=== PATIENT | male | born 1995 | race Caucasian/White ===

== ENCOUNTER 2018-10-20 03:27 | Emergency (ER) | payer SELFPAY ==
[~2018-10-20] VITALS: Ht 182.9 cm; Wt 90.7 kg
--- NOTE | 2018-10-20 03:27 | NUR ---
PT [address], BYSTANDERS CALLED 911, FOUND PT RUNNING AROUND STREETS, NAKED, ACTING BIZARRE. PT NONCOMMUNICATIVE, RESTLESS, RESP EVEN & UNLABORED, DISSHEVELED, UNKEMPT APPEARANCE W/ NO APPARENT DISTRESS NOTED. PT PLACED ON CONTINUOUS MONITORING.
[2018-10-20] MEDS ORDERED: OLANZAPINE 10 MG VIAL IM ONE ×2 (03:58→04:00)
--- NOTE | 2018-10-20 04:04 | NUR ---
PT MEDICATED ORDERED, RESTLESS, UNABLE TO FOLLOW INSTRUCTION. ON CONTINUOUS MONITORING. BED LOW TO GROUND W/ SIDERAILS UP FOR SAFETY. SITTER REMAINS AT BEDSIDE.
--- NOTE | 2018-10-20 04:11 | NUR ---
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
[2018-10-20 04:27] LABS: BASOPHILS % (AUTO) 0.5 % (0.0-2.0); EOSINOPHILS % (AUTO) 2.5 % (0.0-6.0); HEMATOCRIT 39 % (39-51); HEMOGLOBIN 13.2 g/dL (13.5-17.5); LYMPHOCYTES % (AUTO) 40.8 % (20.0-44.0); MEAN CORPUSCULAR HGB CONC 34 g/dl (31.0-36.0); MEAN CORPUSCULAR VOLUME 90 fL (80-96); MONOCYTES # (AUTO) 0.8 /CMM (0.1-1.30); MONOCYTES % (AUTO) 10.5 % (2.0-12.0); NEUTROPHILS # (AUTO) 3.4 /CMM (1.8-8.9); NEUTROPHILS % (AUTO) 45.7 % (43.0-81.0); PLATELET COUNT (AUTO) 239 /CMM (150-450); RED BLOOD CELL COUNT(AUTO) 4.27 MIL/uL (4.5-6.0); WHITE BLOOD COUNT (AUTO) 7.4 K/uL (4.3-11.0)
[2018-10-20 04:49] LABS: ALANINE AMINOTRANSFERASE 50 U/L (12-78); ALBUMIN 3.7 g/dL (3.4-5.0); ALCOHOL, BLOOD < 3 mg/dL (0-0); ALKALINE PHOSPHATASE 70 U/L (46-116); ASPARTATE AMINOTRANSFERASE 34 U/L (15-37); BILIRUBIN,DIRECT 0.1 mg/dL (0.0-0.2); BILIRUBIN,TOTAL 0.2 mg/dL (0.2-1.0); CALCIUM, SERUM 8.3 mg/dL (8.5-10.1); CARBON DIOXIDE 27 mmol/L (21-32); CHLORIDE 105 mmol/L (98-107); GLUCOSE 90 mg/dL (74-106); POTASSIUM 3.9 mmol/L (3.5-5.1); SODIUM SERUM 140 mmol/L (136-145); TOTAL PROTEIN, SERUM 6.8 g/dL (6.4-8.2); UREA NITROGEN, BLOOD 14 mg/dL (7-18)
--- NOTE | 2018-10-20 05:06 | NUR ---
PT LYING SUPINE W/ RESP EVEN & UNLABORED, NAD NOTED. SITTER REMAINS IN DIRECT LINE OF SITE OF PT.
[2018-10-20] MEDS ORDERED: LIDOCAINE 2% JEL UROJET 10 ML MM ONE (05:20)
[2018-10-20 05:33] LABS: SALICYLATE 2.1 mg/dL (2.8-20.0)
[2018-10-20 05:34] LABS: ACETAMINOPHEN 0 ug/ml (10-30)
--- NOTE | 2018-10-20 05:54 | NUR ---
URINAL PROVIDED. PT STILL UNABLE TO URINATE AT THIS TIME, GOING IN AND OUT OF SLEEP. PT INSTRUCTED TO PROVIDE URINE SAMPLE SOON ABLE.
--- NOTE | 2018-10-20 06:42 | NUR ---
PT SITTING UP IN BED W/ RESP EVEN & UNLABORED, STATES HIS NAME IS AVERY, STILL UNABLE TO GIVE HIS FULL NAME, UNABLE TO ANSWER QUESTIONS. ON CONTINUOUS MONITORING. SITTER AT BEDSIDE.
--- NOTE | 2018-10-20 07:40 | NUR ---
ASSESSED PT ON BED AWAKE AND ALERT, NOT IN RESPIRATORY DISTRESS, KEPT RESTED AND COMFORTABLE, WILL CONTINUE TO MONITOR.
--- NOTE | 2018-10-20 07:50 | NUR ---
URINE SPECIMEN COLLECTED AND SENT TO LAB.
--- NOTE | 2018-10-20 11:29 | NUR ---
PT ASLEEP ON BED, V/S STABLE, KEPT RESTED AND COMFORTABLE, WILL CONTINUE TO MONITOR.
--- NOTE | 2018-10-20 15:19 | NUR ---
PT IS BACK FROM THE CT SCAN.
[2018-10-20 15:32] LABS: APPEARANCE,URINE Clear (CLEAR); BILIRUBIN,URINE Negative (NEGATIVE); BLOOD, URINE Negative Ery/uL (NEGATIVE); COLOR,URINE Yellow (YELLOW); KETONES,URINE Negative (NEGATIVE); LEUKOCYTE ESTERASE ,URINE Negative (NEGATIVE); NITRITE, URINE Negative (NEGATIVE); PROTEIN,URINE Negative (NEGATIVE); UGLUCOSE Negative (NEGATIVE); UROBILINOGEN,URINE 0.2 EU/dL (0.2)
--- NOTE | 2018-10-20 17:49 | NUR ---
FOOD TRAY PROVIDED
[2018-10-20 18:59] VITALS: BP 122/69
--- NOTE | 2018-10-20 18:59 | NUR ---
Patient discharged to home in stable condition. Written and verbal after care instructions given. Patient verbalizes understanding of instruction.
== END 2018-10-20 19:02 | disposition home or self-care (01) ==
LOC: ER 03:31 → EDBD 03:31 → ER 19:02
DX: F19.10 Other psychoactive substance abuse, uncomplicated (principal); R41.82 Altered mental status, unspecified
CPT/HCPCS: 36415; 70450; 80048; 80076; 80305; 80307; 80329; 81001; 82962; 85025; 96372; 99284; G0480; J3490 ×2; 81000-TC